=== PATIENT | female | born 1975 | race Caucasian/White ===

== ENCOUNTER 2016-10-29 05:55 | Observation (INO) | payer OTHER ==
[2016-10-29] MEDS ORDERED: ONDANSETRON 4 MG/2 ML VIAL IVP STA ×2 (06:13→14:35)
[2016-10-29] MEDS ORDERED: MAG HYDROX/AL HYDROX/SIMETH 30 ML, HYOSCYAMINE ELIXIR 10 ML, CIMETIDINE HCL 300 MG PO STA ×3 (06:14)
--- NOTE | 2016-10-29 06:16 | ED ---
General Adult HPI - General Source: patient, RN notes reviewed Mode of arrival: ambulatory Limitations: no limitations <Nikhil Simon - Last Filed: 10/29/16 06:48> <Nikhil Wayne - Last Filed: 10/29/16 13:02> - General Chief complaint: Chest Pain Stated complaint: Heart Burn/Chest Pain/Arm Pain Time Seen by Provider: 10/29/16 06:00 - History of Present Illness Initial comments: This is a 41-year-old female who presents to the emergency department stating that she has a 2 day history of heartburn and then today she woke up early this morning with chest tightness and some numbness down her arm on the right. Patient states that numbness is gone away but she still has some chest tightness and feels very lightheaded as if she some was given a passout. Patient denies any shortness of breath or difficulty breathing. Patient denies any recent fever or chills. Patient states she does have a occasional dry cough. Patient denies any actual vomiting. Patient denies any palpable abdominal pain. Patient denies diarrhea. Patient denies any calf pain or swelling in the legs. (Nikhil Simon) - Related Data Home Medications Medication Instructions Recorded Confirmed Xoj-[id number]-Wyhwy Acid 1 cap PO DAILY 06/18/16 10/29/16 [-U Capsule] Calcium Carbonate [Tums] 500 mg PO TID PRN 06/19/16 10/29/16 Cyanocobalamin (Vitamin B-12) 2,500 mcg PO DAILY 10/29/16 10/29/16 [Vitamin B12] Mag Carb/Al Hydrox/Alginic AC 10 - 20 ml PO QID PRN 10/29/16 10/29/16 [Gaviscon Liquid] Ranitidine HCl [Zantac] 75 mg PO BID 10/29/16 10/29/16 Simethicone [Gas-X] 125 mg PO Q8H 10/29/16 10/29/16 Allergies Allergy/AdvReac Type Severity Reaction Status Date / Time No Known Allergies Allergy Verified 10/29/16 07:39 Review of Systems ROS Other: All systems not noted in ROS Statement are negative. <Nikhil Simon - Last Filed: 10/29/16 06:48> ROS Other: All systems not noted in ROS Statement are negative. <Nikhil Wayne - Last Filed: 10/29/16 13:02> ROS Statement: Those systems with pertinent positive or pertinent negative responses have been documented in the HPI. Past Medical History Past Medical History: Thyroid Disorder Additional Past Medical History / Comment(s): Hyperthyroid after 3rd child, resolved. Thrombocytopenia after 3rd child, resolved. History of Any Multi-Drug Resistant Organisms: None Reported Past Surgical History: Section Additional Past Surgical History / Comment(s): D&C x3, c/sx1 Past Anesthesia/Blood Transfusion Reactions: No Reported Reaction Past Psychological History: No Psychological Hx Reported Smoking Status: Former smoker Past Alcohol Use History: None Reported Past Drug Use History: None Reported - Past Family History Mother Family Medical History: No Reported History <Nikhil Simon - Last Filed: 10/29/16 06:48> General Exam Limitations: no limitations <Nikhil Simon - Last Filed: 10/29/16 06:48> General appearance: alert, in no apparent distress Head exam: Present: atraumatic, normocephalic, normal inspection Eye exam: Present: normal appearance, PERRL, EOMI. Absent: scleral icterus, conjunctival injection, periorbital swelling ENT exam: Present: normal exam, mucous membranes moist Neck exam: Present: normal inspection. Absent: tenderness, meningismus, lymphadenopathy Respiratory exam: Present: normal lung sounds bilaterally. Absent: respiratory distress, wheezes, rales, rhonchi, stridor Cardiovascular Exam: Present: regular rate, normal rhythm, normal heart sounds. Absent: systolic murmur, diastolic murmur, rubs, gallop, clicks GI/Abdominal exam: Present: soft, normal bowel sounds. Absent: distended, tenderness, guarding, rebound, rigid Extremities exam: Present: normal inspection, full ROM, normal capillary refill. Absent: tenderness, pedal edema, joint swelling, calf tenderness Back exam: Present: normal inspection Neurological exam: Present: alert, oriented X3, CN II-XII intact Psychiatric exam: Present: normal affect, normal mood Skin exam: Present: warm, dry, intact, normal color. Absent: rash <Nikhil Wayne - Last Filed: 10/29/16 13:02> - General Exam Comments Initial Comments: GENERAL: Patient is well-developed and well-nourished. Patient is nontoxic and well- hydrated and is in mild distress. ENT: Neck is soft and supple. No significant lymphadenopathy is noted. Oropharynx is clear. Moist mucous membranes. Neck has full range of motion without eliciting any pain. EYES: The sclera were anicteric and conjunctiva were pink and moist. Extraocular movements were intact and pupils were equal round and reactive to light. Eyelids were unremarkable. PULMONARY: Unlabored respirations. Good breath sounds bilaterally. No audible rales rhonchi or wheezing was noted. CARDIOVASCULAR: There is a regular rate and rhythm without any murmurs gallops or rubs. ABDOMEN: Soft and nontender with normal bowel sounds. No palpable organomegaly was noted. There is no palpable pulsatile mass. SKIN: Skin is clear with no lesions or rashes and otherwise unremarkable. NEUROLOGIC: Patient is alert and oriented x3. Cranial nerves II through XII are grossly intact. Motor and sensory are also intact. Normal speech, volume and content. Symmetrical smile. MUSCULOSKELETAL: Normal extremities with adequate strength and full range of motion. No lower extremity swelling or edema. No calf tenderness. LYMPHATICS: No significant lymphadenopathy is noted PSYCHIATRIC: Normal psychiatric evaluation. Normal interpersonal interactions appears functionally intact in deals appropriately with others. No signs of depression. No signs of anxiety. (Nikhil Simon) Course <Nikhil Simon - Last Filed: 10/29/16 06:48> <Nikhil Wayne - Last Filed: 10/29/16 13:02> Vital Signs 10/29/16 10/29/16 10/29/16 05:59 07:29 08:17 Temperature 98.5 F Pulse Rate 92 84 Pulse Rate [ 84 Sitting] Pulse Rate [ 92 Standing] Pulse Rate [ 84 Supine] Respiratory 16 20 Rate Blood Pressure 132/81 119/72 Blood Pressure 123/73 [Sitting] Blood Pressure 112/78 [Standing] Blood Pressure 127/66 [Supine] O2 Sat by Pulse 97 97 Oximetry 10/29/16 09:17 Temperature Pulse Rate 94 Pulse Rate [ Sitting] Pulse Rate [ Standing] Pulse Rate [ Supine] Respiratory 20 Rate Blood Pressure 118/78 Blood Pressure [Sitting] Blood Pressure [Standing] Blood Pressure [Supine] O2 Sat by Pulse 96 Oximetry - Reevaluation(s) Reevaluation #1: 10/29/16 13:02 Patient still having chest pain (Nikhil Wayne) Reevaluation #2: 10/29/16 13:02 Spoke with cardiology, patient will be admitted for observation (Nikhil Wayne) Medical Decision Making - Lab Data Result diagrams: 10/29/16 06:25 10/29/16 06:25 <Nikhil Simon - Last Filed: 10/29/16 06:48> - Lab Data Result diagrams: 10/29/16 06:25 10/29/16 06:25 - Radiology Data Radiology results: report reviewed (Chest x-ray positive for pulmonary edema, CT negative for PE, NEGATIVE FOR GALLBLADDER DISEASE), image reviewed <Nikhil Wayne - Last Filed: 10/29/16 13:02> - Medical Decision Making EKG shows a normal sinus rhythm at 79 bpm UT interval is 166 QRS 84 QT interval 372 QTC is 426. Patient's EKG shows no ST segment elevation or depression or T wave abnormalities are noted. Dr. Wayne will be taking over the care of this patient at 7 AM (Nikhil Simon) 41 female ER for evaluation of chest pain. Patient does have pulmonary edema on x-ray, patient will be admitted for evaluation of cardiomyopathy, echo obtained in emergency room (Nikhil Wayne) - Lab Data Lab Results 10/29/16 10/29/16 10/29/16 Range/Units 06:25 06:25 06:25 WBC 5.0 (3.8-10.6) k/uL RBC 4.92 (3.80-5.40) m/uL Hgb 14.5 (11.4-16.0) gm/dL Hct 42.5 (34.0-46.0) % MCV 86.4 (80.0-100.0) fL MCH 29.4 (25.0-35.0) pg MCHC 34.0 (31.0-37.0) g/dL RDW 13.2 (11.5-15.5) % Plt Count 220 (150-450) k/uL Neutrophils % 54 % Lymphocytes % 33 % Monocytes % 5 % Eosinophils % 5 % Basophils % 1 % Neutrophils # 2.7 (1.3-7.7) k/uL Lymphocytes # 1.7 (1.0-4.8) k/uL Monocytes # 0.2 (0-1.0) k/uL Eosinophils # 0.2 (0-0.7) k/uL Basophils # 0.0 (0-0.2) k/uL PT (9.0-12.0) sec INR (<1.1) APTT (22.0-30.0) sec D-Dimer (<0.60) mg/L FEU Sodium 142 (137-145) mmol/L Potassium 5.2 H (3.5-5.1) mmol/L Chloride 102 (98-107) mmol/L Carbon Dioxide 26 (22-30) mmol/L Anion Gap 14 mmol/L BUN 14 (7-17) mg/dL Creatinine 0.60 (0.52-1.04) mg/dL Est GFR (MDRD) Af Amer >60 (>60 ml/min/1.73 sqM) Est GFR (MDRD) Non-Af >60 (>60 ml/min/1.73 sqM) Glucose 86 (74-99) mg/dL Calcium 10.7 H (8.4-10.2) mg/dL Magnesium 1.9 (1.6-2.3) mg/dL Total Bilirubin 1.4 H (0.2-1.3) mg/dL AST 56 H (14-36) U/L ALT 57 H (9-52) U/L Alkaline Phosphatase 71 (38-126) U/L Total Creatine Kinase 116 (30-135) U/L CK-MB (CK-2) 0.7 (0.0-2.4) ng/mL CK-MB (CK-2) Rel Index 0.6 Troponin I 0.017 (0.000-0.034) ng/mL Total Protein 8.7 H (6.3-8.2) g/dL Albumin 5.1 H (3.5-5.0) g/dL Lipase (23-300) U/L HCG, Qual Urine Color Urine Appearance (Clear) Urine pH (5.0-8.0) Ur Specific Freedom (1.001-1.035) Urine Protein (Negative) Urine Glucose (UA) (Negative) Urine Ketones (Negative) Urine Blood (Negative) Urine Nitrate (Negative) Urine Bilirubin (Negative) Urine Urobilinogen (<2.0) mg/dL Ur Leukocyte Esterase (Negative) Urine RBC (0-5) /hpf Urine WBC (0-5) /hpf Ur Squamous Epith Cells (0-4) /hpf Urine Mucus (None) /hpf 10/29/16 10/29/16 10/29/16 Range/Units 06:25 06:25 06:25 WBC (3.8-10.6) k/uL RBC (3.80-5.40) m/uL Hgb (11.4-16.0) gm/dL Hct (34.0-46.0) % MCV (80.0-100.0) fL MCH (25.0-35.0) pg MCHC (31.0-37.0) g/dL RDW (11.5-15.5) % Plt Count (150-450) k/uL Neutrophils % % Lymphocytes % % Monocytes % % Eosinophils % % Basophils % % Neutrophils # (1.3-7.7) k/uL Lymphocytes # (1.0-4.8) k/uL Monocytes # (0-1.0) k/uL Eosinophils # (0-0.7) k/uL Basophils # (0-0.2) k/uL PT 10.0 (9.0-12.0) sec INR 1.0 (<1.1) APTT 28.2 (22.0-30.0) sec D-Dimer 0.50 (<0.60) mg/L FEU Sodium (137-145) mmol/L Potassium (3.5-5.1) mmol/L Chloride (98-107) mmol/L Carbon Dioxide (22-30) mmol/L Anion Gap mmol/L BUN (7-17) mg/dL Creatinine (0.52-1.04) mg/dL Est GFR (MDRD) Af Amer (>60 ml/min/1.73 sqM) Est GFR (MDRD) Non-Af (>60 ml/min/1.73 sqM) Glucose (74-99) mg/dL Calcium (8.4-10.2) mg/dL Magnesium (1.6-2.3) mg/dL Total Bilirubin (0.2-1.3) mg/dL AST (14-36) U/L ALT (9-52) U/L Alkaline Phosphatase (38-126) U/L Total Creatine Kinase (30-135) U/L CK-MB (CK-2) (0.0-2.4) ng/mL CK-MB (CK-2) Rel Index Troponin I (0.000-0.034) ng/mL Total Protein (6.3-8.2) g/dL Albumin (3.5-5.0) g/dL Lipase 42 (23-300) U/L HCG, Qual Not Detected Urine Color Urine Appearance (Clear) Urine pH (5.0-8.0) Ur Specific Freedom (1.001-1.035) Urine Protein (Negative) Urine Glucose (UA) (Negative) Urine Ketones (Negative) Urine Blood (Negative) Urine Nitrate (Negative) Urine Bilirubin (Negative) Urine Urobilinogen (<2.0) mg/dL Ur Leukocyte Esterase (Negative) Urine RBC (0-5) /hpf Urine WBC (0-5) /hpf Ur Squamous Epith Cells (0-4) /hpf Urine Mucus (None) /hpf 10/29/16 Range/Units 09:35 WBC (3.8-10.6) k/uL RBC (3.80-5.40) m/uL Hgb (11.4-16.0) gm/dL Hct (34.0-46.0) % MCV (80.0-100.0) fL MCH (25.0-35.0) pg MCHC (31.0-37.0) g/dL RDW (11.5-15.5) % Plt Count (150-450) k/uL Neutrophils % % Lymphocytes % % Monocytes % % Eosinophils % % Basophils % % Neutrophils # (1.3-7.7) k/uL Lymphocytes # (1.0-4.8) k/uL Monocytes # (0-1.0) k/uL Eosinophils # (0-0.7) k/uL Basophils # (0-0.2) k/uL PT (9.0-12.0) sec INR (<1.1) APTT (22.0-30.0) sec D-Dimer (<0.60) mg/L FEU Sodium (137-145) mmol/L Potassium (3.5-5.1) mmol/L Chloride (98-107) mmol/L Carbon Dioxide (22-30) mmol/L Anion Gap mmol/L BUN (7-17) mg/dL Creatinine (0.52-1.04) mg/dL Est GFR (MDRD) Af Amer (>60 ml/min/1.73 sqM) Est GFR (MDRD) Non-Af (>60 ml/min/1.73 sqM) Glucose (74-99) mg/dL Calcium (8.4-10.2) mg/dL Magnesium (1.6-2.3) mg/dL Total Bilirubin (0.2-1.3) mg/dL AST (14-36) U/L ALT (9-52) U/L Alkaline Phosphatase (38-126) U/L Total Creatine Kinase (30-135) U/L CK-MB (CK-2) (0.0-2.4) ng/mL CK-MB (CK-2) Rel Index Troponin I (0.000-0.034) ng/mL Total Protein (6.3-8.2) g/dL Albumin (3.5-5.0) g/dL Lipase (23-300) U/L HCG, Qual Urine Color Yellow Urine Appearance Clear (Clear) Urine pH 8.0 (5.0-8.0) Ur Specific Freedom 1.016 (1.001-1.035) Urine Protein Negative (Negative) Urine Glucose (UA) Negative (Negative) Urine Ketones Negative (Negative) Urine Blood Negative (Negative) Urine Nitrate Negative (Negative) Urine Bilirubin Negative (Negative) Urine Urobilinogen <2.0 (<2.0) mg/dL Ur Leukocyte Esterase Small H (Negative) Urine RBC 2 (0-5) /hpf Urine WBC 4 (0-5) /hpf Ur Squamous Epith Cells 1 (0-4) /hpf Urine Mucus Rare H (None) /hpf Disposition <Nikhil Simon - Last Filed: 10/29/16 06:48> <Nikhil Wayne - Last Filed: 10/29/16 13:02> Clinical Impression: cardiomyopathy Disposition: ADMITTED IP TO THIS [facility] Condition: Good Referrals: None,Stated [Primary Care Provider] - 1-2 days
[2016-10-29 06:32] LABS: Basophils % (A) 1 %; CH 30.6; CHCM 35.6; Eosinophils # (A) 0.2 k/uL (0-0.7); Eosinophils % (A) 5 %; HCT 42.5 % (34.0-46.0); HDW 2.83; HGB 14.5 gm/dL (11.4-16.0); Luc # (Auto) 0.13; Luc % (Auto) 3; Lymphocytes # (A) 1.7 k/uL (1.0-4.8); Lymphocytes % (A) 33 %; MCH 29.4 pg (25.0-35.0); MCV 86.4 fL (80.0-100.0); Mean Platelet Volume 7.5; Monocytes # (A) 0.2 k/uL (0-1.0); Monocytes % (A) 5 %; Neutrophils # (A) 2.7 k/uL (1.3-7.7); Neutrophils % (A) 54 %; RBC 4.92 m/uL (3.80-5.40); RDW 13.2 % (11.5-15.5)
[2016-10-29 06:44] LABS: Partial Thromboplastin Time 28.2 sec (22.0-30.0)
[2016-10-29 06:46] LABS: ALT 57 U/L (9-52); AST 56 U/L (14-36); Alkaline Phosphatase 71 U/L (38-126); Anion Gap 14 mmol/L; Blood Urea Nitrogen 14 mg/dL (7-17); Calcium 10.7 mg/dL (8.4-10.2); Carbon Dioxide 26 mmol/L (22-30); Chloride 102 mmol/L (98-107); Glucose 86 mg/dL (74-99); Magnesium 1.9 mg/dL (1.6-2.3); Non-African American GFR(MDRD) >60 (>60 ml/min/1.73 sqM); Potassium 5.2 mmol/L (3.5-5.1); Sodium 142 mmol/L (137-145); Total Bilirubin 1.4 mg/dL (0.2-1.3); Total Protein 8.7 g/dL (6.3-8.2)
--- NOTE | 2016-10-29 07:04 | XR ---
EXAMINATION TYPE: XR chest 2V DATE OF EXAM: 10/29/2016 6:59 AM COMPARISON: None HISTORY: Heartburn x3 days chest tightness this a.m. right arm pain. TECHNIQUE: Frontal and lateral views of the chest are obtained. FINDINGS: There is mild pulmonary vascular congestion. There is no focal air space opacity, pleural effusion, or pneumothorax seen. The cardiac silhouette size is within normal limits. The osseous structures are intact. IMPRESSION: 1. Mild pulmonary vascular congestion. 2. No focal pneumonia.
[2016-10-29 07:07] LABS: Creatine Kinase MB 0.7 ng/mL (0.0-2.4); Troponin I 0.017 ng/mL (0.000-0.034)
--- NOTE | 2016-10-29 08:49 | US ---
EXAMINATION TYPE: US gallbladder DATE OF EXAM: 10/29/2016 8:19 AM COMPARISON: NONE CLINICAL HISTORY: Pain. EXAM MEASUREMENTS: Liver Length: 18.5cm Gallbladder Wall: 0.2cm CBD: 0.3cm Right Kidney: 12.4 x 4.3 x 4.3cm TECHNOLOGIST IMPRESSION: Pancreas: wnl, tail of pancreas is poorly visualized Liver: wnl Gallbladder: wnl Evidence for sonographic Urbano's sign: no CBD: wnl Right Kidney: wnl No pericholecystic fluid gallbladder wall thickening or gallstones are evident. IMPRESSION: 1. Normal right upper quadrant ultrasound
[2016-10-29] MEDS ORDERED: MORPHINE SULFATE 4 MG/ML SYRINGE IVP STA ×2 (09:02→14:21)
[2016-10-29] MEDS ORDERED: RX INFO: IV CONTRAST WAS GIVEN 1 EACH MISC MISCELLANE PRN (09:02)
[2016-10-29] MEDS ORDERED: PANTOPRAZOLE 40 MG/10 ML VIAL IVP STA (09:02)
[2016-10-29] MEDS ORDERED: ACETAMINOPHEN IV (For NPO) 1,000 MG in EMPTY BAG 1 BAG IVPB STA (09:10)
[2016-10-29 09:54] LABS: Appearance,Urine Clear (Clear); Bilirubin,Urine Negative (Negative); Glucose,Urine (UA) Negative (Negative); Ketones,Urine Negative (Negative); Leukocyte Esterase,Urine Small (Negative); Mucus,Urine Rare /hpf; Nitrite,Urine Negative (Negative); Particle Count 2672; Protein,Urine Negative (Negative); RBC,Urine 2 /hpf (0-5); Specific Gravity,Urine 1.016 (1.001-1.035); Squamous Epithelial Cell,Urine 1 /hpf (0-4); UA Billing (MACRO vs. MICRO) MICRO; Urobilinogen,Urine <2.0 mg/dL (<2.0); WBC,Urine 4 /hpf (0-5)
--- NOTE | 2016-10-29 10:46 | CT ---
EXAMINATION TYPE: CT angio chest DATE OF EXAM: 10/29/2016 10:33 AM COMPARISON: NONE HISTORY: shortness of breath and chest discomfort. [address] DLP: 207.3 mGycm Automated exposure control for dose reduction was used. CONTRAST: CTA scan of the thorax is performed with IV Contrast, patient injected with 100 mL of Omnipaque 350, pulmonary embolism protocol. . FINDINGS: LUNGS: The lungs are grossly clear, there is no concerning parenchymal mass or nodule identified. T here is no pleural effusion or pneumothorax seen. The tracheobronchial tree is patent. There is apic al pleural-based thickening bilaterally MEDIASTINUM: There is satisfactory enhancement of the pulmonary artery and its branches, there is no CT evidence for pulmonary embolism. There are no greater than 1 cm hilar or mediastinal lymph nodes. No pericardial effusion is seen. OTHER: No additional significant abnormality is seen. IMPRESSION: NO CT EVIDENCE OF PULMONARY EMBOLISM
[2016-10-29] MEDS ORDERED: NITROGLYCERIN SL TABS 0.4 MG TAB SUBLINGUAL PRN (13:03)
--- NOTE | 2016-10-29 13:12 | ECHOF ---
Referral Reason:cardiomyopathy MEASUREMENTS -------- HEIGHT: 165.1 cm WEIGHT: 73.5 kg BP: IVSd: 1.1 cm (0.6 - 1.1) LVIDd: 3.1 cm (3.9 - 5.3) LVPWd: 1.2 cm (0.6 - 1.1) IVSs: 1.7 cm LVIDs: 2.3 cm LVPWs: 1.4 cm Ao Diam: 2.8 cm (2.0 - 3.7) AV Cusp: 2.3 cm (1.5 - 2.6) LA Diam: 2.9 cm (2.7 - 3.8) MV EXCURSION: 16.356 mm (> 18.000) MV EF SLOPE: 67 mm/s (70 - 150) EPSS: 0.5 cm MV E Henrique: 0.73 m/s MV DecT: 205 ms MV A Henrique: 0.79 m/s MV E/A Ratio: 0.92 RAP: 5.00 mmHg RVSP: 27.03 mmHg FINDINGS -------- Sinus rhythm. This was a technically good study. Left ventricular wall thickness is normal. Overall left ventricular systolic function is normal with, an EF between 55 - 60 %. The right ventricle is normal in size and function. The left atrium is normal in size. The right atrium is normal in size. The aortic valve is trileaflet, and appears structurally normal. No aortic stenosis or regurgitation. Mild mitral regurgitation is present. Trace tricuspid regurgitation present. The right ventricular systolic pressure, as measured by Doppler, is 27.03mmHg. Pulmonic valve appears structurally normal. The aortic root size is normal. The pericardium is normal. CONCLUSIONS -------- 1. Sinus rhythm. 2. Trace tricuspid regurgitation present. 3. The right ventricular systolic pressure, as measured by Doppler, is 27.03mmHg. 4. Pulmonic valve appears structurally normal. 5. The aortic root size is normal. 6. The pericardium is normal. 7. This was a technically good study. 8. Left ventricular wall thickness is normal. 9. Overall left ventricular systolic function is normal with, an EF between 55 - 60 %. 10. The right ventricle is normal in size and function. 11. The left atrium is normal in size. 12. The right atrium is normal in size. 13. The aortic valve is trileaflet, and appears structurally normal. No aortic stenosis or regurgitation. 14. Mild mitral regurgitation is present. CREMATORY OPERATOR: Niurka Hutchinson RDCS
[2016-10-29 14:05] LABS: Creatine Kinase 81 U/L (30-135)
[2016-10-29 14:18] LABS: Creatine Kinase MB 0.5 ng/mL (0.0-2.4); Troponin I <0.012 ng/mL (0.000-0.034)
[2016-10-29 15:31] VITALS: RESP 16
[2016-10-29] MEDS: ACETAMINOPHEN TAB 325 MG TAB PO PRN ×2 (16:13→20:11)
[2016-10-29 19:59] LABS: Creatine Kinase 71 U/L (30-135)
[2016-10-29 20:12] LABS: Creatine Kinase MB 0.5 ng/mL (0.0-2.4); Troponin I <0.012 ng/mL (0.000-0.034)
[2016-10-29] MEDS: PANTOPRAZOLE 40 MG/10 ML VIAL IVP SCH (20:12)
[2016-10-30 07:05] LABS: Cholesterol 172 mg/dL (<200); HDL Cholesterol 43 mg/dL (40-60); Triglycerides 144 mg/dL (<150)
--- NOTE | 2016-10-30 09:16 | CONS ---
DATE OF CONSULTATION: Marietta Ram is a 41-year-old female who presented with the following symptoms. She started experiencing epigastric discomfort, which then spread to her back, below her scapula bilaterally. She described this as a heartburn. Subsequently, she felt palpitations in her chest while she was sleeping and felt dizzy and then started experiencing chest heaviness. She woke up her and then came to the hospital. On initial evaluation, her ECG showed sinus rhythm with subtle ST depression in the inferolateral leads. Chest x-ray was read as mild pulmonary vascular congestion. She did not have any pneumonitis or any upper respiratory infection at this time. In the emergency room, her blood pressure was normal. Heart rates were normal. No arrhythmias were noted. She did state that she had an occasional dry cough. REVIEW OF SYSTEMS: No fever, chills, or rigors. No cough or expectoration. No nausea, vomiting or diarrhea. No hematuria or dysuria. No strokes or seizure. No skin lesions or musculoskeletal complaints. PAST HISTORY: She has had 9 pregnancies, 2 miscarriages. She has a history of elevated blood pressure during her last . No history of -induced diabetes or preeclampsia or eclampsia. There was a history of thrombocytopenia at one , but immediately after the delivery the platelet count was normal. She has never had DVT or pulmonary emboli. She was underwent a CT of the chest because the discomfort in the back was pleuritic in nature, but this was negative for pulmonary emboli. A 2-D echo showed normal LV size and systolic function without segmental wall motion abnormalities. There was no evidence for cardiomyopathy. I had initially been called by Dr. Wayne stating that she had related cardiomyopathy, but this does not appear to be true. On examination, her blood pressure is 102/59 mmHg, heart rate is in the 60s. She is afebrile. Respirations normal. Head and neck examination are normal. No rhonchi. No crackles. Heart sounds S1 and S2 are normal. No murmur, no gallop. Abdomen is soft. Extremities are warm. No edema. Labs are reviewed. Potassium is 5.2. AST and ALT of 56 and 57, mildly elevated. Lipase is normal. Triglycerides 144, total cholesterol 172, LDL is 100 and HDL is 43. GFR is normal. Medications at home include vitamin B12, simethicone, ranitidine and calcium. IMPRESSION: Patient presenting with epigastric discomfort, pleuritic chest discomfort followed by anterior chest discomfort and palpitations. No arrhythmias detected. ECG shows a very subtle [address] depression inferolaterally, but cardiac enzymes are normal. No risk factors of diabetes, hypertension, dyslipidemia. She has a family history of coronary artery disease and apparently her father had a heart attack at age 35, but there is nothing to corroborate this story in terms of its accuracy. SUGGEST: 1. An exercise stress test today to look for any exercise-induced arrhythmias and she was complaining of palpitations and was very dizzy. 2. To look for any ischemia. She is only 41 years of age; therefore I anticipate this should be a normal stress test. I do not see any evidence for an acute myocardial injury. I will follow up in the office thereafter.
--- NOTE | 2016-10-30 10:45 | ECHOS ---
DATE OF SERVICE: 10/30/2016 AGE: 41Y SEX: F HT: 65" WT: 162 lbs. Protocol Mac: X Others: Stress Echo Stage: III Dur. of Exercise: 6 minutes, 53 seconds *Heart Rate Blood Pressure *Rest: 68 Rest: 95/76 * *Max. Achieved: 155 Maximum BP: 145/72 85% PMHR: 153 100% PMHR: 180 *METS: 7.1 INDICATIONS: Chest pain. MEDICATIONS: - The test is being done to evaluate chest pains and cardiac status. Baseline EKG showed a sinus rhythm with normal CT interval and QRS duration. Blood pressure at rest is 95/76 with pulse rate of 68. Patient walked on the Mac protocol for 6 minutes achieving a maximum heart rate of 155 with a blood pressure of 145/72. EKGs taken during and after the exercise did not reveal any changes to suggest ischemia. Baseline echo images show normal wall motion and thickening. Exercise echo images showed augmentation of the wall motion and thickening in all the segments. FINAL IMPRESSION: 1. Negative stress echo negative. 2. Negative stress test.
[2016-10-30 11:40] VITALS: BP 97/66; PULSE 76; TEMP 98.9
[2016-10-30] MEDS: PANTOPRAZOLE 40 MG/10 ML VIAL IVP SCH (13:13)
--- NOTE | 2016-10-30 17:58 | HP ---
H&P AND DISCHARGE SUMMARY DATE OF ADMISSION: Patient is a 41-year-old who came in with complaints of heartburn and acid reflux symptoms along with some nausea that typically would happen after eating a spicy meatball. Patient unfortunately underwent extensive workup for this, including an echocardiogram, stress echocardiogram which is essentially within normal limits, a regular echocardiogram which is within normal limits as well, CT angiogram of the chest which was normal, ultrasound of the gallbladder which is normal as well. Patient is clinically doing well, improved symptoms with Protonix, and patient will be discharged today on Prilosec. Patient denied any fever, chills, nausea, vomiting. Patient denied any diarrhea, hematemesis, hemoptysis. REVIEW OF SYSTEMS: CONSTITUTIONAL: No fever, no malaise, no fatigue. HEENT: No recent visual problems or hearing problems. Denied any sore throat. CARDIOVASCULAR: No chest pain, orthopnea, PND, no palpitations, no syncope. PULMONARY: No shortness of breath, no cough, no hemoptysis. GASTROINTESTINAL: As described in HPI. NEUROLOGICAL: No headaches, no weakness, no numbness. HEMATOLOGICAL: Denies any bleeding or petechiae. GENITOURINARY: Denies any burning micturition, frequency, or urgency. MUSCULOSKELETAL/RHEUMATOLOGICAL: Denies any joint pain, swelling, or any muscle pain. ENDOCRINE: Denies any polyuria or polydipsia. The rest of the 14 point review of systems is negative. Home medications include: 1. vitamins. 2. Calcium carbonate. 3. Cyanocobalamin. 4. Magnesium carbonate. 5. Ranitidine. 6. Simethicone. ALLERGIES: NO KNOWN DRUG ALLERGIES. PAST MEDICAL HISTORY: Apparently hypothyroidism, which apparently that resolved; she is not taking any thyroid medications. She had section. SOCIAL HISTORY: Former smoker. Quit smoking. Denied any alcohol abuse or any drug abuse. FAMILY HISTORY: Denied any family history of hypertension, diabetes mellitus or coronary artery disease in the family. PHYSICAL EXAMINATION: VITAL SIGNS: Temperature 98.9, pulse of 76, respiratory rate of 16. Blood pressure 97/66. Saturating at 93% on room air. GENERAL: The patient is alert and oriented x3, not in any acute distress. Well developed, well nourished. HEENT: Pupils are round and equally reacting to light. EOMI. No scleral icterus. No conjunctival pallor. Normocephalic, atraumatic. No pharyngeal erythema. No thyromegaly. CARDIOVASCULAR: S1 and S2 present. No murmurs, rubs, or gallops. PULMONARY: Chest is clear to auscultation, no wheezing or crackles. ABDOMEN: Soft, nontender, nondistended, normoactive bowel sounds. No palpable organomegaly. MUSCULOSKELETAL: No joint swelling or deformity. EXTREMITIES: No cyanosis, clubbing, or pedal edema. NEUROLOGICAL: Gross neurological examination did not reveal any focal deficits. SKIN: No rashes. LABORATORY DATA: Extensive lab workup as mentioned above. Rest of the lab data is essentially within normal limits. ASSESSMENT AND PLAN: 1. Epigastric abdominal pain with epigastric burning sensation due to gastritis or gastroesophageal reflux disease, peptic ulcer disease. I will replace ranitidine with proton pump inhibitor. Patient will be discharged today. 2. Rule out acute coronary syndromes. 3. Rule out pulmonary embolism. 4. Rule out cholelithiasis or cholecystitis. Patient will be discharged today in stable medical condition to home. Patient will follow with Dr. Jose Emery on an as-needed basis ( ) and Dr. Nichole Tinsley in about a week. Activity as tolerated. No spicy food. Avoid caffeine. This dictation is both H&P and discharge summary.
== END 2016-10-30 14:05 | disposition home or self-care (01) ==
LOC: EC 05:55 → 3OBS 13:03
PROVIDERS: ADMIT Hospitalist; ATTEND Hospitalist
DX: R10.13 Epigastric pain (principal); R20.0 Anesthesia of skin; R07.89 Other chest pain; R42 Dizziness and giddiness; R00.2 Palpitations; R07.81 Pleurodynia; Z79.899 Other long term (current) drug therapy; Z87.891 Personal history of nicotine dependence
CPT/HCPCS: 36415; 71020; 71275; 76705; 80053; 80061; 81001; 82550; 82553; 83690; 83735; 84484; 84703; 85025; 85379; 85610; 85730; 87086; 93005; 93017; 93306; 93350; 96374; 96375; 96376; 99285

== ENCOUNTER → 2019-08-31 | Outpatient (CLI) | payer SELFPAY ==
[2019-08-31 09:58] VITALS: BP 115/77; PULSE 76; RESP 18; TEMP 97.9
--- NOTE | 2019-08-31 10:55 | P.HPOB ---
History of Present Illness H&P Date: 08/31/19 Chief Complaint: The patient is here for her routine gynecologic exam. This is a 44-year-old with an LMP of 08/17/2019. The patient is here to establish with this office. The patient states she has used natural family planning for control. She is declining any other method of control for moravian reasons. It has been about 3 years since her last pelvic exam. She states her menstrual periods were regular every month up until about 3 months ago. They typically would last 5 days. About 3 months ago she went for about 10 weeks without a menstrual period and then started a menstrual period on 07/15/2019 which was heavy and prolonged and lasted 16 days. She would have to change her protection about every 1 hour on the heavy days. She started bleeding again on 08/17/2019 which was 1 day of flow followed by spotting and she has continued to have light spotting to the present day. She has been experiencing hot flashes mostly during the day for about 1 year. She had a thyroid test done by Dr. Olivier Bowers about 6 months ago and was told it was normal. She has also been experiencing hair loss. She is taken several tests during the time when she missed her menstrual period and also did ovulation tests which were not consistent with ovulation. Review of Systems The patient's weight has been stable over the last year. She denies respiratory, cardiac, or G.I. problems. Past Medical History Past Medical History: GERD/Reflux, Thyroid Disorder Additional Past Medical History / Comment(s): Hyperthyroid after 3rd child, resolved. Thrombocytopenia after 3rd child, resolved. 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 History of Any Multi-Drug Resistant Organisms: None Reported Past Surgical History: Section Additional Past Surgical History / Comment(s): D&C x3, c/s x2 Past Anesthesia/Blood Transfusion Reactions: No Reported Reaction Past Psychological History: No Psychological Hx Reported Additional Psychological History / Comment(s): Pt resides with her spouse and 7 children. She is independent. Smoking Status: Never smoker Past Alcohol Use History: Rare (9 per year) Additional Past Alcohol Use History / Comment(s): Pt states she smoked during her teen yrs and none since. 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 - Past Family History Mother Family Medical History: No Reported History Father Family Medical History: Coronary Artery Disease (CAD), Myocardial Infarction ([place]) Additional Family Medical History / Comment(s): Father had his first [place] at the age of 35yrs and his second Mi at the age of 64yrs. Paternal grandmother had breast cancer in her 70s. Medications and Allergies Home Medications Medication Instructions Recorded Confirmed Type Calcium Carbonate [Tums] 500 mg PO TID PRN 06/19/16 08/31/19 History Allergies Allergy/AdvReac Type Severity Reaction Status Date / Time No Known Allergies Allergy Verified 08/31/19 09:54 Exam Vital Signs Temp Pulse Resp BP Pulse Ox 08/31/19 09:55 97.9 F 76 18 115/77 99 Intake and Output 08/30/19 08/31/19 08/31/19 22:59 06:59 14:59 Other: Weight 71.214 kg Height 5 feet 5 inches, weight 157 pounds, BMI 26.1. This is a well-developed well-nourished white female who is alert and oriented times 3 in no acute distress. HEENT: Within normal limits. NECK: Supple without mass or thyromegaly. CHEST AND LUNGS: Clear to auscultation. HEART: Regular rate and rhythm. BREASTS: Are without mass or discharge. AXILLARY EXAM: Negative for adenopathy. BACK: Negative for CVA tenderness. ABDOMEN: Soft, nontender, without palpable masses. PELVIC EXAM: Normal external genitalia. Cervix and vagina appear normal with minimal atrophy and appears nulliparous. There is a scant amount of pinkish thin discharge. There is no evidence of prolapse. The uterus is midposition, nongravid size and nontender. There are no palpable adnexal masses or tenderness. RECTAL EXAM: negative for mass or tenderness and is negative for occult blood. EXTREMITIES: Nontender. IMPRESSION: 1. 44-year-old perimenopausal female with recent oligomenorrhea and dysfunctional uterine bleeding with vasomotor symptoms. Differential diagnosis will also include thyroid dysfunction and . 2. The patient uses natural family planning for control and is declining any other method of control. PLAN: 1. Pap smear was performed. 2. Self breast awareness was discussed with the patient. 3. Baseline screening mammogram was recommended and the order slip was given to the patient for this. 4. Blood tests will be drawn today and this will include TSH, FSH, and serum hCG. The thyroid testing that she states she had done earlier this year was prior to her menstrual abnormalities. Thyroid testing will be repeated for this reason. 5. The patient will keep a menstrual calendar. If she is having worsening dysfunctional uterine bleeding or problems, she was instructed to make an appointment for reevaluation. If this is the case, we will consider endometrial sampling. 6. I have recommended that she try to establish with a primary care physician. 7. She was advised to return in one year for her annual well woman exam and as needed.
[2019-08-31 21:10] LABS: HCG,Quantitative Serum <2.0 mIU/mL
== END | disposition home or self-care (01) ==
LOC: WWCWWP 09:46
PROVIDERS: ATTEND Obstetrics & Gynecology
DX: N93.8 Other specified abnormal uterine and vaginal bleeding (principal); N91.4 Secondary oligomenorrhea
CPT/HCPCS: 36415; 83001; 84443; 84702

== ENCOUNTER → 2019-09-15 | Day surgery (SDC) | payer SELFPAY ==
[2019-09-15 12:01] VITALS: BP 112/74; PULSE 76; RESP 18; TEMP 97.7
--- NOTE | 2019-09-15 12:58 | P.PCN ---
Date of Procedure: 09/15/19 Preoperative Diagnosis: dysfunctional uterine bleeding Postoperative Diagnosis: dysfunctional uterine bleeding Procedure(s) Performed: endometrial biopsy Anesthesia: none Surgeon: Pradeep March Estimated Blood Loss (ml): 5 Pathology: other (endometrial biopsy tissue) Condition: stable Disposition: same day Indications for Procedure: This was a 44 year old G 10 [id number] with an LMP of 08/17/2019. Her LMP was prolonged and went from.-like bleeding to sports medicine specialist spotting and vaginal bleeding that persisted until it became heavy on 09/03/2019. It has progressively gotten heavier and now she is changing her protection about every 1 hour. She denies any cramping or pain. She states her menstrual periods usually have some degree of cramping. She had a negative blood test and has not been sexually active since that testing. Because of the dysfunctional uterine bleeding, she was scheduled for an endometrial biopsy. Operative Findings: The patient is having moderate menstrual bleeding. The uterus sounded to 8 cm. Some tissue with a moderate amount of blood was obtained. Description of Procedure: The endometrial biopsy procedure was described to the patient. All of her questions were answered. The patient was placed in the lithotomy position. Bimanual examination was performed. The uterus is mid positioned and is nongravid size. The speculum was inserted and the cervix and vagina were prepped with betadine solution. an Allis clamp was used to grasp the anterior lip of the cervix. The 3mm endometrial biopsy curette was placed to the fundus without difficulty. The uterus sounded to 8 cm. A [id number] rotating motion was used and a small amount of tissue was obtained with moderate bloodand sent for pathological examination. Because of the endometrial instrument filling with blood, the procedure was repeated 2 times also obtaining some tissue with moderate blood. The patient tolerated the procedure well. There were no complications. The post procedure vitals are as follows: blood pressure 115/78. pulse 71. Post procedure instructions were given to the patient. The patient will be started on Provera 10 mg daily 12 days. She was instructed to call if she is having very heavy bleeding, lightheadedness, faint feeling, or problems. She was instructed to go to the emergency room if she is having more urgent problems such as extremely heavy bleeding. If she is soaking through pads in 30 minutes or less she was instructed to call or go to the emergency room.
--- NOTE | 2019-09-21 11:22 | P.PN ---
Progress Note - Text Progress Note Date: 09/21/19 OUTPATIENT FOLLOW-UP NOTE TEST(S)/RESULTS: Endometrial biopsy from 09/15/2019 showed disordered endometrium METHOD OF NOTIFICATION: The patient was notified by phone. 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 DIAGNOSIS: Dysfunctional uterine bleeding with disordered endometrium on endometrial biopsy. DISCUSSION: The patient started Provera 10 mg daily on 09/15/2019. She was warned that after discontinuing the Provera after 12 days, the vaginal bleeding may get heavier. She is to keep a menstrual calendar. We have discussed the option of cyclic Provera versus observation after the one course of Provera. She would like to clean complete this course of Provera this month and observe. She was instructed to call if she is having menstrual problems, persistent dysfunctional uterine bleeding or very heavy bleeding. PLAN: As above. If menstrual periods are more regular, she will return in one year for her well woman examination.
--- NOTE | 2019-09-27 14:12 | P.PN ---
Progress Note - Text Progress Note Date: 09/27/19 The patient called on 09/24/2019 while taking a course of Provera 10 mg daily for 12 days. This was started on 09/15/2019. She states that bleeding initially got mill controller, but became heavy year when she called. She states it has now gotten mill controller again and she completed the 12 days of Provera yesterday. She was warned that she probably will start a withdrawal bleed this week and it may be heavy. I expect that it should last more like a normal period length. We will plan on using cyclic Provera 10 mg on days 18 through 29 of the month for the next 2 months. She will keep a menstrual calendar and call if she is having problems. I anticipate that she will have withdrawal bleed after each monthly course of Provera. After the 3 months of cyclic Provera, we will go without Provera. I have asked her to abstain from sexual activity so there should not be any chance of her getting during this treatment. The prescription will be sent to her pharmacy electronically.
== END ==
LOC: WWCWWP 11:41
PROVIDERS: ATTEND Obstetrics & Gynecology
DX: N91.5 Oligomenorrhea, unspecified (principal); N93.8 Other specified abnormal uterine and vaginal bleeding
CPT/HCPCS: 88305

== ENCOUNTER 2020-05-19 11:15 | Emergency (ER) | payer OTHER ==
[2020-05-19 11:23] VITALS: TEMP 98
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
--- NOTE | 2020-05-19 12:18 | XR ---
EXAMINATION TYPE: XR chest 2V DATE OF EXAM: 05/19/2020 COMPARISON: 10/29/2016 TECHNIQUE: PA and lateral views submitted. HISTORY: Chest pain FINDINGS: The lungs are clear and there is no pneumothorax, pleural effusion, or focal pneumonia. Biapical pl eural thickening. IMPRESSION: 1. No acute process.
--- NOTE | 2020-05-19 12:19 | XR ---
EXAMINATION TYPE: XR forearm RT DATE OF EXAM: 05/19/2020 COMPARISON: NONE HISTORY: Pain Two views of the forearm demonstrate that the osseous structures appear to be intact and the joint sp aces appear to be preserved. There is no acute fracture or dislocation. There is displacement anter ior fat pad. IMPRESSION: 1. Appears to be a pathologic joint effusion of the elbow. No fracture line is seen. Dedicated elbow series could be obtained. Occult fracture in the differential diagnosis.
--- NOTE | 2020-05-19 12:20 | XR ---
EXAMINATION TYPE: XR foot complete RT DATE OF EXAM: 05/19/2020 COMPARISON: NONE HISTORY: Pain TECHNIQUE: Three views are submitted. FINDINGS: The osseous structures are intact. There is no acute fracture or dislocation. Joint spaces are p reserved. Small calcaneal spurs noted. IMPRESSION: 1. No acute fracture or dislocation. If symptoms persist, follow-up exam in 7 to 10 days could be ob tained.
--- NOTE | 2020-05-19 12:49 | XR ---
EXAMINATION TYPE: XR elbow complete RT DATE OF EXAM: 05/19/2020 COMPARISON: NONE HISTORY: Pain FINDINGS: Three views of the elbow demonstrate a pathologic anterior joint effusion. The osseous structures ar e intact. There is no acute fracture or dislocation. IMPRESSION: 1. Pathologic joint effusion. No definite fracture line seen. Findings suspicious for occult fracture
[2020-05-19 13:19] VITALS: BP 126/78; PULSE 80; RESP 18
== END 2020-05-19 13:19 | disposition home or self-care (01) ==
LOC: EC 11:15
DX: S90.31XA Contusion of right foot, initial encounter (principal); M25.521 Pain in right elbow; M79.631 Pain in right forearm; V43.52XA Car driver injured in collision with other type car in traffic accident, initial encounter; Y92.410 Unspecified street and highway as the place of occurrence of the external cause
CPT/HCPCS: 71046; 99284

== ENCOUNTER → 2020-11-29 | Outpatient (CLI) | payer SELFPAY ==
[2020-11-29 09:51] VITALS: BP 110/63; PULSE 71; RESP 18; TEMP 98.5
--- NOTE | 2020-11-29 10:49 | P.HPOB ---
History of Present Illness H&P Date: 11/29/20 Chief Complaint: The patient is here for her routine gynecologic exam. This is a 45-year-old G2 10 [id number] with an LMP of 11/24/2020. The patient was treated for dysfunctional uterine bleeding with cyclic Provera which she used for 3 months from October to December 2019. She states she did have regular menstrual periods when she used that. Her menstrual calendar indicates that she went without a menstrual period during January and February 2020. She had a period that started on 04/14/2020 which lasted nearly one month through 05/12/2020. That bleeding episode had 2 weeks of heavier bleeding and 2 weeks of period like bleeding. She did not have a menstrual period in May. She had fairly regular monthly periods from June through August 2020. She did not have menstrual bleeding in September 2020 she has had some spotting on and off between 11/13/2020 through today. She has also noticed that she has more hair loss at the times when she goes longer periods without menstrual bleeding and also has noticed occasional heart palpitations where the heart seems to get slow at times. She has also been experiencing some left breast soreness without nipple discharge. She is due to have another left breast diagnostic mammogram in 1 month following her abnormal screening mammogram 5 months ago. She continues to use natural family planning for control and tries to determine when she is ovulating by her menstrual flow and ovulation test kits. She has experienced occasional hot flashes. Endometrial biopsy was done on 09/15/2019 which showed disordered endometrium and this preceded the use of cyclic Provera. She states she does not have a primary care physician. Review of Systems Weight has been stable. She denies respiratory or GI problems. Cardiac: Occasional palpitations where it feels like the heart rate is slower than normal. Past Medical History Past Medical History: GERD/Reflux, Thyroid Disorder Additional Past Medical History / Comment(s): Hyperthyroid after 3rd child, resolved. Thrombocytopenia after 3rd child, resolved. 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 History of Any Multi-Drug Resistant Organisms: None Reported Past Surgical History: Section Additional Past Surgical History / Comment(s): D&C x3, c/s x2 Past Anesthesia/Blood Transfusion Reactions: No Reported Reaction Past Psychological History: No Psychological Hx Reported Additional Psychological History / Comment(s): Pt resides with her spouse and 7 children. She is independent. Smoking Status: Former smoker Past Alcohol Use History: Occasional (1 bottle of wine per month.) Additional Past Alcohol Use History / Comment(s): Pt states she smoked during her teen yrs and none since. Past Drug Use History: None Reported Additional History: The patient is and does not work outside of the home. - Past Family History Mother Family Medical History: No Reported History Father Family Medical History: Coronary Artery Disease (CAD), Myocardial Infarction ([place]) Additional Family Medical History / Comment(s): Father had his first [place] at the age of 35yrs and his second Mi at the age of 64yrs. Paternal grandmother had breast cancer in her 70s. Medications and Allergies Home Medications Medication Instructions Recorded Confirmed Type Ibuprofen 200 mg PO DAILY PRN 09/15/19 11/29/20 History Pedi Multivit No.25/Folic Acid 1 tab PO DAILY 09/15/19 11/29/20 History [Flintstones Multivit Chew Tab] Calcium Carbonate/Vitamin D3 1 each PO DAILY 11/29/20 11/29/20 History [Calcium 500-Vit D3 15 Mcg (600 Iu)] Allergies Allergy/AdvReac Type Severity Reaction Status Date / Time No Known Allergies Allergy Verified 11/29/20 09:48 Exam Vital Signs Temp Pulse Resp BP Pulse Ox 11/29/20 09:48 98.5 F 71 18 110/63 99 Intake and Output 11/28/20 11/29/20 11/29/20 22:59 06:59 14:59 Other: Weight 71.214 kg Height 5 feet 5 inches, weight 157 pounds, BMI 26.1. This is a well-developed well-nourished white female who is alert and oriented times 3 in no acute distress. HEENT: Within normal limits. NECK: Supple without mass or thyromegaly. CHEST AND LUNGS: Clear to auscultation. HEART: Regular rate and rhythm. BREASTS: Are without mass or discharge. There is moderate fibrocystic tissue throughout the breasts bilaterally. There is mild left lateral breast tenderness without palpable mass. There is no nipple discharge. AXILLARY EXAM: Negative for adenopathy. BACK: Negative for CVA tenderness. ABDOMEN: Soft, nontender, without palpable masses. PELVIC EXAM: Normal external genitalia. Cervix and vagina appear normal. There is a small amount of menstrual blood in the back of the vagina. There is no unusual discharge. There is no cervical motion tenderness. There is no evidence of prolapse. The uterus is midposition, multiparous nongravid size and nontender. There are no palpable adnexal masses or tenderness. RECTAL EXAM: negative for mass or tenderness and is negative for occult blood. EXTREMITIES: Nontender. IMPRESSION: 1. 45-year-old female using natural family planning for control with episodes of dysfunctional uterine bleeding and oligomenorrhea. Possible perimenopause. 2. Normal gynecologic exam. 3. Previous benign endometrial biopsy showing disordered endometrium on 09/15/2019. 4. Successful regulation of menstrual periods with cyclic Provera which she used for 3 months one year ago. 5. Episodes of increased hair loss during the times of oligomenorrhea and occasional palpitations with normal cardiac auscultation today. Possible thyroid dysfunction. PLAN: 1. Pap smear was deferred since she had a normal one on 08/31/2019. 2. Self breast awareness was discussed with the patient. 3. Patient will continue to keep a menstrual calendar. 4. Blood tests will include hCG, TSH, T4, FSH, and estradiol. If these tests are unremarkable we will can consider use of cyclic progestin or cyclic micronized progesterone. 5. I have recommended that the patient establish with a primary care physician. She understands there are certain conditions, such as palpitations, for which she would be better off seeing a PCP. She states she will look into establishing with a PCP. 6. We have discussed how her irregular menstrual periods will make it very difficult for her to determine when she is ovulating and when she has fertile. This would make natural family planning much less reliable to prevent . She understands this and again is declining any form of control for personal reasons. 7. Left diagnostic mammogram is due in 1 month and she states she has an appointment for this. The order slip was given to the patient for this. 8. She was advised to return in one year for her annual well woman exam and as needed.
[2020-11-30 02:12] LABS: Estradiol 56.5 pg/mL
[2020-11-30 02:13] LABS: Follicle Stimulating Hormone 22.8 mIU/mL
[2020-11-30 02:58] LABS: HCG,Quantitative Serum <2.0 mIU/mL
--- NOTE | 2020-11-30 15:01 | P.PN ---
Progress Note - Text Progress Note Date: 11/30/20 Blood tests done on 11/29/20 include normal TSH, normal free T4, neg HCG, estradiol 56.5, and FSH 22.8. These results were given to the patient by phone. These results along with irregular menses are most consistent with perimenopause. She had one episode of prolonged bleeding last year with oligo menorrhea, 3 months of regular menses, and recent intermittent spotting after brief amenorrhea. This is consistent with irregular ovulation. We again discussed the option of cyclic progesterone to regulate the menstrual periods. She would like to go without treatment at this time. She is to keep a menstrual calendar and call if menstrual problems such as very heavy flow, prolonged menses, or frequent vaginal bleeding at which time we can consider cyclic progesterone again. She is aware that irregular ovulation can make predicting when she is fertile difficult, so natural family planning may be more difficult to use to prevent . She understands that with advanced age, she is at a greater risk for genetic abnormalities, such as Down's Syndrome. She will continue to take a daily multivitamin. She continues to decline any other method for control for personal reasons. She will return in one year for her well woman exam and as needed.
== END ==
LOC: WWCWWP 09:40
PROVIDERS: ATTEND Obstetrics & Gynecology
DX: Z01.419 Encounter for gynecological examination (general) (routine) without abnormal findings (principal); N93.9 Abnormal uterine and vaginal bleeding, unspecified; N91.5 Oligomenorrhea, unspecified; N85.8 Other specified noninflammatory disorders of uterus; R01.2 Other cardiac sounds; R00.2 Palpitations; Z87.891 Personal history of nicotine dependence
CPT/HCPCS: 82670; 83001; 84439; 84443; 84702

== ENCOUNTER → 2021-09-25 | Outpatient (CLI) | payer SELFPAY ==
--- NOTE | 2021-09-25 08:41 | MM ---
Reason for exam: additional evaluation requested from prior study. Last mammogram was performed 1 year and 2 months ago. History: Family history of breast cancer in paternal grandmother at age 72. Physical Findings: Nurse did not find any significant physical abnormalities on exam. MG Diagnostic Mammo w CAD TIGIST Bilateral CC and MLO view(s) were taken. Prior study comparison: July 11, 2020, left breast MG work up mamm w CAD LT. July 11, 2020, bilateral MG foundation screening mammo. The breast tissue is heterogeneously dense. This may lower the sensitivity of mammography. Stable superior anterior asymmetric density left for 1 year. Additional follow up recommended. These results were verbally communicated with the patient and result sheet given to the patient on 09/25/21. ASSESSMENT: Probably benign, BI-RAD 3 RECOMMENDATION: Follow-up diagnostic mammogram of both breasts in 1 year.
== END | disposition home or self-care (01) ==
LOC: RADMAMWWP 07:38
PROVIDERS: ATTEND Obstetrics & Gynecology
DX: R92.8 Other abnormal and inconclusive findings on diagnostic imaging of breast (principal)
CPT/HCPCS: 77066

== ENCOUNTER → 2024-02-03 | Outpatient (CLI) | payer SELFPAY ==
--- NOTE | 2024-02-03 14:25 | MM ---
Reason for Exam: Clinical finding. Last mammogram was performed 2 year(s) and 5 month(s) ago. Indicated Problems: Lump or thickening. Patient History: Menarche at age 12. First Full-Term at age 27. Premenopausal. Paternal grandmother had breast cancer, age 72. Last menstrual period: 01/11/2024 Risk Values: Emmanuelle 5 year model risk: 1.1%. NCI Lifetime model risk: 11.1%. Tissue Density: There are scattered areas of fibroglandular density. Findings: Analyzed By CAD. Unchanged global asymmetry anterior 12:00 left breast. No significant change from prior exams. Palpable marker placed along the inferior left breast and left axilla. Further ultrasound evaluation recommended. Overall Assessment: Incomplete: need additional imaging evaluation, BI-RAD 0 Management: Diagnostic Breast Ultrasound of the left breast. Electronically signed and approved by: Rashid Henley M.D. Radiologist
--- NOTE | 2024-02-03 14:41 | USB ---
Reason for Exam: Clinical finding. Patient History: Menarche at age 12. First Full-Term at age 27. Premenopausal. Paternal grandmother had breast cancer, age 72. Risk Values: Emmanuelle 5 year model risk: 1.1%. NCI Lifetime model risk: 11.1%. Technique: Method: Targeted. Prior Study Comparison: 07/11/2020 Bilateral Screening Mammogram, [facility]. 07/11/2020 Left Diagnostic Mammogram, [facility]. 09/25/2021 Bilateral Diagnostic Mammogram, [facility]. Findings: The area of palpable concern of the left breast, the axilla of the left breast and the retroareolar of the left breast were scanned. Targeted ultrasound left breast 10:00 and 2:00 palpable sites along with scanning in the subareolar region and axilla. * At the 10:00 position, 4 cm, no discrete abnormality is seen at the patient's palpable site. * At the 2:00 position far peripherally, 14 cm from the nipple, a small, benign low axillary tail lymph node measuring 5 x 5 x 3 mm is noted. * No other solid or cystic lesion or axillary lymphadenopathy. Overall Assessment: Benign, BI-RAD 2 Management: Screening Mammogram of both breasts in 1 year. Further clinical follow-up/management of any suspicious palpable areas. A clinical breast exam by your physician is recommended on an annual basis and results should be correlated with mammographic findings. This exam should not preclude additional follow-up of suspicious palpable abnormalities. Results were given to the patient verbally at the time of exam. Electronically signed and approved by: Rashid Henley M.D. Radiologist
== END | disposition home or self-care (01) ==
LOC: RADMAMWWP 13:34
PROVIDERS: ATTEND Obstetrics & Gynecology
DX: R92.323 Mammographic fibroglandular density, bilateral breasts (principal); N63.22 Unspecified lump in the left breast, upper inner quadrant; N64.4 Mastodynia; Z80.3 Family history of malignant neoplasm of breast
CPT/HCPCS: 77062; 77066

== ENCOUNTER → 2024-02-03 | Outpatient (CLI) | payer SELFPAY ==
--- NOTE | 2024-02-03 10:32 | P.HPOB ---
History of Present Illness H&P Date: 02/03/24 Chief Complaint: The patient is here for her routine gynecologic exam. This is a 49-year-old with an LMP of 01/11/2024. She states her menstrual periods have been somewhat irregular. She states they can be irregular for 3 months and then she will go 4 to 5 months without a period. Her hot flashes seem to be declining and are mild and they were much worse 1 to 2 years ago. During the past 2 months she has noticed a small lump in the left breast at approximately the 11 o'clock position. It has also been tender there. Her last mammogram was a diagnostic mammogram on 09/25/2021 following an abnormal screening. In 2020 a 12-month diagnostic bilateral mammogram was recommended, which was not done. Review of Systems The patient has lost 9 pounds over the last 3years. She has been trying to lose weight. She denies respiratory, cardiac, or G.I. problems. Past Medical History Past Medical History: GERD/Reflux, Thyroid Disorder Additional Past Medical History / Comment(s): Hyperthyroid after 3rd child, resolved. Thrombocytopenia after 3rd child, resolved. 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 History of Any Multi-Drug Resistant Organisms: None Reported Past Surgical History: Section Additional Past Surgical History / Comment(s): D&C x3, c/s x2 Past Anesthesia/Blood Transfusion Reactions: No Reported Reaction Past Psychological History: No Psychological Hx Reported Additional Psychological History / Comment(s): Pt resides with her spouse and 7 children. She is independent. Smoking Status: Former smoker Past Alcohol Use History: Occasional ( 3 drinks per week.) Additional Past Alcohol Use History / Comment(s): Pt states she smoked during her teen yrs and none since. 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 - Past Family History Mother Family Medical History: No Reported History Father Family Medical History: Coronary Artery Disease (CAD), Myocardial Infarction ([place]) Additional Family Medical History / Comment(s): Father had his first [place] at the age of 35yrs and his second Mi at the age of 64yrs. Paternal grandmother had breast cancer in her 70s. Medications and Allergies Home Medications Medication Instructions Recorded Confirmed Type Calcium Carbonate/Vitamin D3 1 each PO DAILY 11/29/20 02/03/24 History [Calcium 500-Vit D3 15 Mcg (600 Iu)] Allergies Allergy/AdvReac Type Severity Reaction Status Date / Time No Known Allergies Allergy Verified 02/03/24 09:50 Exam Vital Signs Temp Pulse Resp BP Pulse Ox 02/03/24 09:51 97.9 F 78 16 110/71 98 Intake and Output 02/02/24 02/03/24 02/03/24 22:59 06:59 14:59 Other: Weight 67.132 kg Height 5 feet 5 inches, weight 148 pounds, BMI 24.6. This is a well-developed well-nourished white female who is alert and oriented times 3 in no acute distress. HEENT: Within normal limits. NECK: Supple without mass or thyromegaly. CHEST AND LUNGS: Clear to auscultation. HEART: Regular rate and rhythm. BREASTS: Are without mass or discharge. There is moderate fibrous tissue throughout the breasts. There is no discrete palpable mass in the 11 o'clock position where the patient has felt a small lump during the past 2 months. There is mild tenderness in that area. AXILLARY EXAM: Negative for adenopathy. BACK: Negative for CVA tenderness. ABDOMEN: Soft, nontender, without palpable masses. PELVIC EXAM: Normal external genitalia. Cervix and vagina appear normal with mild atrophy. The cervix is somewhat stenotic. There is no unusual discharge. There is no evidence of prolapse. The uterus is midposition, nongravid size and nontender. There are no palpable adnexal masses or tenderness. RECTAL EXAM: Rectovaginal exam is negative for mass or tenderness and is negative for occult blood. EXTREMITIES: Nontender. IMPRESSION: 1. 49-year-old perimenopausal female with intermittent oligomenorrhea, with normal gynecologic exam. 2. Previous cryotherapy of the cervix in the past. 3. The patient has felt a left breast lump during the past 2 months and there is tenderness in that area without discrete mass on exam today. She did not perform the bilateral diagnostic mammogram in 2021 as recommended by her previo us mammogram. PLAN: 1. Pap smear cotest was performed. 2. Self breast awareness was discussed with the patient. We have also discussed symptoms associated with inflammatory breast cancer. 3. Bilateral diagnostic mammogram was recommended because of her subjective finding breast lump by self breast exam and left breast tenderness in that area today. He had a previous abnormal mammogram requiring diagnostic mammogram and that was not done in 2021 as recommended. 4. Osteoporosis prevention was discussed. I have stressed the importance of adequate calcium, vitamin D and regular exercise. Recommended amounts of calcium and vitamin D were also discussed. 5. She will keep a menstrual calendar and call if menstrual problems. 6. Mended that she establish with a PCP in the very near future. I have also recommended that she discusses colorectal cancer screening with her PCP. 7. Weight control was discussed. I have stressed the importance of good nutrition, regular meals, adequate fiber, and regular exercise. 8. She was advised to return in one year for her annual well woman exam and as needed.
[2024-02-03 10:37] VITALS: BP 110/71; PULSE 78; RESP 16; TEMP 97.9
== END ==
LOC: WWCWWP 09:31
PROVIDERS: ATTEND Obstetrics & Gynecology
DX: Z01.419 Encounter for gynecological examination (general) (routine) without abnormal findings (principal); N91.5 Oligomenorrhea, unspecified; N63.22 Unspecified lump in the left breast, upper inner quadrant; Z78.0 Asymptomatic menopausal state; Z87.891 Personal history of nicotine dependence; Z80.3 Family history of malignant neoplasm of breast

== ENCOUNTER → 2025-02-08 | Outpatient (CLI) | payer BC ==
[2025-02-08 15:56] LABS: Basophils # (A) 0.05 X 10*3/uL (0.00-0.10); Basophils % (A) 1.1 %; Eosinophils # (A) 0.23 X 10*3/uL (0.04-0.35); Eosinophils % (A) 5.1 %; HCT 39.7 % (37.2-46.3); HGB 13.4 g/dL (12.0-15.0); Lymphocytes # (A) 1.35 X 10*3/uL (0.90-5.00); MCH 30.5 pg (27.0-32.0); MCHC 33.8 g/dL (32.0-37.0); MCV 90.4 FL (80.0-97.0); Mean Platelet Volume 11.4 FL (9.5-12.2); Monocytes # (A) 0.33 X 10*3/uL (0.20-1.00); Monocytes % (A) 7.3 %; NRBC Per 100 WBC 0 X 10*3/uL (0.00-0.01); Neutrophils # (A) 2.53 X 10*3/uL (1.80-7.70); Neutrophils % (A) 56.3 %; Platelet Count 203 X 10*3/uL (140-440); RBC 4.39 X 10*6/uL (4.10-5.20); RDW 11.9 % (11.5-14.5)
[2025-02-08 16:06] LABS: % Iron Saturation 30.65 (12.00-45.00)
== END | disposition home or self-care (01) ==
LOC: LABWHC1 09:44
PROVIDERS: ATTEND Family Medicine
DX: R79.0 Abnormal level of blood mineral (principal); Z83.2 Family history of diseases of the blood and blood-forming organs and certain disorders involving the immune mechanism
CPT/HCPCS: 36415; 81256; 82607; 82728; 83540; 83550; 85025